=== PATIENT | male | born 1965 | race Caucasian/White ===

== ENCOUNTER 2025-07-15 09:51 | Outpatient (CLI) | payer OTHER | END 2025-07-15 09:52 | disposition home or self-care (01) | LOC: ULT 09:51 | PROVIDERS: ATTEND Nurse Practitioner Family | DX: Z13.6 Encounter for screening for cardiovascular disorders (principal); Z87.891 Personal history of nicotine dependence | CPT/HCPCS: 76706 ==

== ENCOUNTER 2025-07-22 09:35 | Outpatient (CLI) | payer OTHER | END 2025-07-22 09:36 | disposition home or self-care (01) | LOC: RAD 09:35 | PROVIDERS: ATTEND Internal Medicine Critical Care Medicine | DX: R06.00 Dyspnea, unspecified (principal) | CPT/HCPCS: 71046 ==